=== PATIENT | female | born 1950 | race Caucasian/White ===

== ENCOUNTER 2017-03-25 12:12 | Emergency (ER) | payer MEDICARE, BC ==
[~2017-03-25] VITALS: Ht 160 cm; Wt 90.9 kg
[~2017-03-25 12:12] MED LIST: ASPIRIN 32325 MG/TAB PO; CELEBREX 200MG200 MG PO; COLACE 100100 MG/CAP PO; LOVENOX 4040 MG/0.4 SQ; NORCO 325 MG-7.1 TAB PO; PROMETRIUM100 MG PO; SINGULAIR 110 MG/TAB PO; ZOLOFT 100MG100 MG PO; ZYRTEC ALLERGY10 MG PO
[2017-03-25 12:19] VITALS: TEMP 97.6
[2017-03-25 15:07] VITALS: BP 143/92; PULSE 76
== END 2017-03-25 15:06 | disposition home or self-care (01) ==
LOC: COL.ER 12:12
DX: S01.511A Laceration without foreign body of lip, initial encounter (principal); S01.81XA Laceration without foreign body of other part of head, initial encounter; F32.9 Major depressive disorder, single episode, unspecified; Z79.82 Long term (current) use of aspirin; W10.9XXA Fall (on) (from) unspecified stairs and steps, initial encounter; Y92.009 Unspecified place in unspecified non-institutional (private) residence as the place of occurrence of the external cause

== ENCOUNTER 2017-03-29 14:36 | Emergency (ER) | payer MEDICARE, BC ==
[~2017-03-29] VITALS: Ht 160 cm; Wt 90.9 kg
[2017-03-29 14:41] VITALS: TEMP 98.9
[2017-03-29] MEDS ORDERED: NORCO 325 MG-51 TAB PO (16:31)
[2017-03-29 16:39] VITALS: BP 114/86; PULSE 80
== END 2017-03-29 16:39 | disposition home or self-care (01) ==
LOC: COL.ER 14:36
DX: S20.221A Contusion of right back wall of thorax, initial encounter (principal); F32.9 Major depressive disorder, single episode, unspecified; W10.9XXA Fall (on) (from) unspecified stairs and steps, initial encounter

== ENCOUNTER → 2017-04-05 | Outpatient (CLI) | payer MEDICARE, BC ==
[~2017-04-05] MED LIST changes: +NORCO 325 MG-51 TAB PO
[2017-04-05 17:08] LABS: BASO # 0.1 (0.0-0.2); BASO % 0.6 % (0.0-2.0); EOS # 0.2 (0.0-0.7); GRAN # 6.2 (1.4-6.5); GRAN % 72.5 % (42.2-75.2); HEMATOCRIT 43.4 % (37.0-47.0); HEMOGLOBIN 14.4 g/dl (12.5-16.0); LYMPH # 1.5 (1.2-3.4); MEAN CELL VOLUME 76 fl (80.0-100.0); MEAN CORPUSCULAR HEMOGLOBIN 25 pg (27.0-31.0); MEAN CORPUSCULAR HGB CONC 33 g/dl (33.0-37.0); MEAN PLATELET VOLUME 9.8 fl (7.4-10.4); MONO # 0.6 (0.1-0.6); MONO % 7.3 % (1.7-9.3); PLATELET COUNT 326 K/mm3 (130-400); RED BLOOD COUNT 5.74 M/mm3 (4.10-5.30); REDCELL DISTRIBUTION WIDTH-CV 13.7 % (11.5-14.5)
[2017-04-05 17:14] LABS: ALBUMIN 4.7 gm/dL (3.5-5.0); BILIRUBIN,TOTAL 0.7 mg/dL (0.0-1.0); CALCIUM 9.7 mg/dL (8.4-10.2); CHOLESTEROL RISK RATIO 5.5; CREATININE, serum 0.79 mg/dL (0.52-1.25); POTASSIUM 4.2 mmol/L (3.4-5.0); TOTAL PROTEIN 8.1 gm/dL (6.4-8.2)
[2017-04-05 17:44] LABS: TSH w REFLEX 3.12 uIU/mL (0.465-4.680)
== END ==
LOC: COL.LAB 14:58
PROVIDERS: Family Medicine
DX: Z13.1 Encounter for screening for diabetes mellitus (principal); Z13.220 Encounter for screening for lipoid disorders; I10 Essential (primary) hypertension

== ENCOUNTER → 2017-04-27 | Outpatient (CLI) | payer MEDICARE, BC | LOC: COL.LAB 10:48 | DX: Z11.3 Encounter for screening for infections with a predominantly sexual mode of transmission (principal) ==

== ENCOUNTER → 2017-07-25 | Outpatient (CLI) | payer MEDICARE, BC ==
[2017-07-25 16:32] LABS: URINE PROTEIN:CREAT RATIO 0.02 (0.00-0.14)
== END ==
LOC: COL.LAB 11:08
PROVIDERS: Family Medicine
DX: E11.9 Type 2 diabetes mellitus without complications (principal)

== ENCOUNTER → 2017-08-24 | Outpatient (CLI) | payer MEDICARE, BC | LOC: MC.RAD 10:07 | DX: Z12.31 Encounter for screening mammogram for malignant neoplasm of breast (principal); N64.89 Other specified disorders of breast ==

== ENCOUNTER → 2017-08-30 | Outpatient (CLI) | payer MEDICARE, BC | LOC: MC.RAD 13:50 | DX: R92.2 Inconclusive mammogram (principal) ==

== ENCOUNTER → 2021-02-10 | Outpatient (CLI) | payer MEDICARE, BC | LOC: MC.RAD 12:53 | DX: Z12.31 Encounter for screening mammogram for malignant neoplasm of breast (principal); N63.10 Unspecified lump in the right breast, unspecified quadrant; Z78.0 Asymptomatic menopausal state ==

== ENCOUNTER → 2021-02-27 | Outpatient (CLI) | payer MEDICARE | LOC: MC.RAD 08:59 | DX: N63.20 Unspecified lump in the left breast, unspecified quadrant (principal) ==

== ENCOUNTER 2022-01-29 10:27 | Day surgery (SDC) | payer MEDICARE ==
[2022-01-29] VITALS (7 sets, daily range): BP systolic 103–127; BP diastolic 52–68; PULSE 58–70; TEMP 97.5–98
[~2022-01-29] VITALS: Ht 160 cm; Wt 73.6 kg
[2022-01-29] MEDS ORDERED: NYAMYC100000 U/G TP (10:49)
[2022-01-29] MEDS ORDERED: GLUCOPHAGE1000 MG PO (10:49)
[2022-01-29] MEDS ORDERED: WELLBUTRIN XL150 MG PO (10:49)
[2022-01-29] MEDS ORDERED: ATARAX 25MG25 MG/TAB PO (10:49)
[2022-01-29] MEDS ORDERED: ATACAND8 MG PO (10:50)
[2022-01-29] MEDS ORDERED: LIPITOR 10MG10 MG PO (10:50)
[2022-01-29] MEDS ORDERED: NORVASC 10MG10 MG PO (10:50)
[2022-01-29] MEDS ORDERED: CARAFATE 1GM1 G PO (10:51)
--- NOTE | 2022-01-29 13:38 | NUR ---
REPORT RECEIVED FROM [facility]; PT A&OX4, VSS; DRSG C, D, I. HEART RATE REGULAR, LUNG SOUNDS CLEAR BILAT. CALL [place]ABALLO WITHIN REACH; SAFETY MAINTAINED.
[2022-01-29] MEDS ORDERED: NORCO 325 MG-51 TAB PO (13:49)
[2022-01-29] MEDS ORDERED: MOTRIN 600600 MG/TAB PO (13:49)
--- NOTE | 2022-01-29 13:50 | NUR ---
PT TOLERATING PO LIQUIDS WELL. FLUIDS WO AT THIS TIME. DAUGHTER AT BEDSIDE.
--- NOTE | 2022-01-29 14:53 | NUR ---
DISCHARGE INSTRUCTIONS GIVEN TO PT AND DAUGHTER; QUESTIONS ANSWERED; UNDERSTANDING VERBALIZED.
--- NOTE | 2022-01-29 15:05 | NUR ---
PT DISCHARGED OUT OF DEPT VIA WC WITH DAUGHTER DRIVING. SAFETY MAINTAINED.
== END 2022-01-29 15:05 | disposition home or self-care (01) ==
LOC: SDCO 10:27
DX: L72.3 Sebaceous cyst (principal); F17.210 Nicotine dependence, cigarettes, uncomplicated
CPT/HCPCS: J0690; J2704; J7120

== ENCOUNTER → 2022-05-21 | Outpatient (CLI) | payer MEDICARE ==
[~2022-05-21] MED LIST changes: +ATACAND8 MG PO; +ATARAX 25MG25 MG/TAB PO; +CARAFATE 1GM1 G PO; +GLUCOPHAGE1000 MG PO; +LIPITOR 10MG10 MG PO; +MOTRIN 600600 MG/TAB PO; +NORVASC 10MG10 MG PO; +NYAMYC100000 U/G TP; +WELLBUTRIN XL150 MG PO
== END ==
LOC: MC.RAD 12:52
DX: Z12.31 Encounter for screening mammogram for malignant neoplasm of breast (principal)